=== PATIENT | female | born 1935 | race Caucasian/White ===

== ENCOUNTER 2017-01-12 09:53 | Day surgery (SDC) | payer MEDICARE, BC ==
[~2017-01-12 09:53] MED LIST: Buffered Lidocaine 1% SYR 3ML* 3 ML/SYR SYRINGE INTRADERM ONE
[2017-01-12] MEDS ORDERED: Clindamycin 900 MG IVPREMIX(* 900 MG/50 ML SDV IV ONE (10:13)
[2017-01-12] MEDS ORDERED: fentaNYL* 50 MCG/ML 2 ML VIAL (100 MCG VIAL) ONE (10:56)
[2017-01-12] MEDS ORDERED: Midazolam* 1 MG/ML 2 ML VIAL (2 MG) ONE ×2 (10:56→12:18)
[2017-01-12] MEDS ORDERED: Lidocain 1% EPI 1:100,000 * 30 ML MDV ONE (11:43)
[2017-01-12] MEDS ORDERED: Propofol* 10 MG/ML 20 ML BTL IV PUSH ONE (12:38)
[2017-01-12] MEDS ORDERED: Acetaminophen TAB* 325 MG ONE (13:21)
[2017-01-12 13:32] VITALS: BP 144/78
== END 2017-01-12 13:51 | disposition home or self-care (01) ==
LOC: OR 09:53
PROVIDERS: ATTEND Plastic Surgery
DX: C43.59 Malignant melanoma of other part of trunk (principal)
CPT/HCPCS: 88305; A9270-GY; J2250; J2704; J3010